=== PATIENT | female | born 1990 | race African-American/Black ===

== ENCOUNTER 2017-07-19 03:29 | Emergency (ER) | payer OTHER ==
[~2017-07-19] VITALS: Ht 172.7 cm; Wt 56.7 kg
--- NOTE | ~2017-07-19 | EKG ---
[address] [address] ELECTROCARDIOGRAM REPORT Name: KIRA BONNER Room #: [id number] Admission: 07/19/17 Attend Phys: Discharge: 07/19/17 Date of : 89 Report #: [id number] THIS REPORT FOR: //name// [facility] ED Test Date: 2017-07-19 Test Time: 03:42:15 Pat Name: KIRA BONNER Department: Room: Gender: F [employer] Operator: MARTINEZ : 1990 Requested By: Linda Aldana Order Number: [id number] MD: Roddy Kitchen Measurements Intervals Galt Rate: 70 P: 29 MS: 139 QRS: 61 QRSD: 90 T: 65 QT: 373 QTc: 403 Interpretive Statements Sinus rhythm No previous ECG available for comparison Electronically Signed On 07-19-2017 12:44:39 CDT by Roddy Kitchen [email or web address] <ELECTRONICALLY SIGNED> By: Roddy Kitchen MD 07/19/17 1244 [id number] Roddy Kitchen MD /EPI
[2017-07-19] MEDS ORDERED: ZYRTEC10 M5 PO (03:41)
[2017-07-19] MEDS ORDERED: FLONASE 0.05%50 MCG NASAL (03:41)
[2017-07-19] MEDS ORDERED: NORCO 5-325 TA1 EACH PO (03:44)
[2017-07-19 04:14] LABS: BASOPHILS 0.6 % (0.0-2.0); EOSINOPHILS 0.8 % (0.0-3.0); HEMATOCRIT 38.1 % (37.0-47.0); HEMOGLOBIN 12.5 gm/dL (12.0-15.0); LYMPHOCYTES 16.4 % (24.0-44.0); MCH 27.1 pg (26.0-34.0); MCHC 32.9 g/dL (28.0-37.0); MCV 82.5 fL (80.0-100.0); MONOCYTES 6.7 % (1.0-8.0); PLATELET COUNT 170 thou/uL (150-400); POLYS 75.5 % (36.0-66.0); RBC 4.62 mil/uL (4.20-5.00); RDW 14.7 % (10.5-14.5); WBC 5.3 thou/uL (4.0-11.0)
[2017-07-19 04:20] LABS: MANUAL DIFF NO
[2017-07-19 04:22] LABS: ANION GAP 8 mmol/L (7-16); BUN 8 mg/dL (7-18); CALCIUM 9.3 mg/dL (8.5-10.1); CHLORIDE 105 mmol/L (98-107); CO2 27 mmol/L (21-32); CREATININE 0.8 mg/dL (0.6-1.0); GLUCOSE 96 mg/dL (74-106); POTASSIUM 3.6 mmol/L (3.5-5.1); SODIUM 140 mmol/L (136-145)
[2017-07-19 04:30] LABS: TROPONIN-I < 0.04 ng/mL (<0.04-0.07)
[2017-07-19 04:58] VITALS: BP 123/85
== END 2017-07-19 05:02 | disposition home or self-care (01) ==
LOC: ER 03:29
PROVIDERS: Emergency Medicine
DX: R07.89 Other chest pain (principal); R09.1 Pleurisy; Z88.8 Allergy status to other drugs, medicaments and biological substances